=== PATIENT | female | born 1985 | race Two or more races ===

== ENCOUNTER 2020-07-19 15:35 | Emergency (ER) | payer OTHER ==
[~2020-07-19] VITALS: Ht 170.2 cm; Wt 77.2 kg
[2020-07-19 16:23] LABS: BASO # 0.1 x10^3/uL (0.0-0.2); BASO % 1 % (0-3); EOS # 0.1 x10^3/uL (0.0-0.7); EOS % 1 % (0-3); HEMATOCRIT 38.5 % (36.0-47.0); HEMOGLOBIN 12.8 g/dL (12.0-15.5); LYMPH # 2.6 x10^3/uL (1.0-4.8); LYMPH % 39 % (24-48); MEAN CORPUSCULAR HEMOGLOBIN 30 pg (25-35); MEAN CORPUSCULAR HGB CONC 33 g/dL (31-37); MEAN CORPUSCULAR VOLUME 91 fL (79-100); MONO # 0.4 x10^3/uL (0.0-1.1); MONO % 7 % (0-9); NEUT # 3.5 x10^3uL (1.8-7.7); NEUT % 52 % (31-73); PLATELET COUNT 262 x10^3/uL (140-400); RED BLOOD COUNT 4.25 x10^6/uL (3.50-5.40); RED CELL DISTRIBUTION WIDTH 13.4 % (11.5-14.5); WHITE BLOOD COUNT 6.7 x10^3/uL (4.0-11.0)
[2020-07-19 16:24] LABS: PREG TEST PT QUAL NEGATIVE (NEG)
[2020-07-19 16:31] LABS: CALCIUM 8.9 mg/dL (8.5-10.1); CREATININE 0.7 mg/dL (0.6-1.0); GFR 94.7; POTASSIUM 3.8 mmol/L (3.5-5.1)
[2020-07-19 16:33] LABS: BARBITURATES NEG (NEG); BENZODIAZEPINES NEG (NEG); CANNABINOIDS NEG (NEG); COCAINE NEG (NEG); METHADONE NEG (NEG); OPIATES NEG (NEG); PHENCYCLIDINE NEG (NEG)
[2020-07-19 16:34] LABS: AMPHETAMINE/METHAMPHETAMINE NEG (NEG)
[2020-07-19 16:40] LABS: BACTERIA,URINE 0 /HPF (0-FEW); BILIRUBIN,URINE NEG (NEG); CLARITY,URINE CLEAR; COLOR,URINE YELLOW; GLUCOSE,URINE NEG (NEG); NITRITE,URINE NEG (NEG); RBC,URINE 0 /HPF (0-2); UROBILINOGEN,URINE 0.2 mg/dL (0.2 mg/dL); WBC,URINE 0 /HPF (0-4)
[2020-07-19 16:44] LABS: ALBUMIN 3.8 g/dL (3.4-5.0); DIRECT BILIRUBIN 0.1 mg/dL (0.0-0.2); TOTAL BILIRUBIN 0.2 mg/dL (0.2-1.0); TOTAL PROTEIN 7.8 g/dL (6.4-8.2)
--- NOTE | 2020-07-19 16:56 | PHYS DOC ---
Past History Past Medical History: No Pertinent History (MADISON JOHN DO) Past Surgical History: Hysterectomy (MADISON JOHN DO) Alcohol Use: None (MADISON JOHN DO) General Adult EDM: Chief Complaint: ABDOMINAL PAIN HPI: HPI: 35-year-old female past medical history significant for IBS-C, endometriosis, uterine fibroids with "strange cells," s/p hysterectomy in October 2019, presents the ED with complaints of 2 weeks of dull, throbbing abdominal pain that goes from the epigastric region to the umbilicus and radiates across both sides of the abdomen. States today the abdominal pain became worse that it " hurts to move." Reports when she takes Linzess and eats food, she has " ridiculous diarrhea." When she does not take Linzess she does not have diarrhea after eating. States she always has constipation unless she takes Linzess. Last bowel movement yesterday, reports white color. States she is overweight for being in the [employer]. States "I was thinking it was just gas pain." (MADISON JOHN DO) Review of Systems: Review of Systems: Constitutional: Denies fever or chills Eyes: Denies change in visual acuity HENT: Denies nasal congestion or sore throat Respiratory: Denies cough or shortness of breath Cardiovascular: Denies chest pain or edema or syncope GI: Denies nausea, vomiting, melena, hematochezia, hematemesis : Denies dysuria or hematuria Musculoskeletal: Denies back pain or joint pain Integument: Denies rash or diaphoresis Neurologic: Denies headache, focal weakness or sensory changes Endocrine: Denies polyuria or polydipsia Lymphatic: Denies swollen glands Psychiatric: Denies depression or anxiety (MADISON JOHN DO) Physical Exam: PE: Constitutional: Well developed, well nourished, no acute distress, non-toxic appearance. HENT: Normocephalic, atraumatic, Eyes: EOMI, conjunctiva normal, no discharge. Neck: Normal range of motion, supple, Cardiovascular: S1/2 present, regular rhythm Lungs & Thorax: Speaking in full sentences, bilateral equal chest rise, no tachypnea or increased work of breathing Abdomen: soft, epigastric abdominal pain, right upper quadrant pain with no Rose sign, no rigidity or guarding, no pain McBurney's point, no Rovsing sign Skin: Warm, dry, no erythema, no rash. [] Back: No tenderness, no CVA tenderness. [] Extremities: No tenderness, no cyanosis, no lower extremity edema Neurologic: Alert and oriented X 3, normal motor function, normal sensory function, no focal deficits noted. [] Psychologic: Affect normal, judgement normal, mood normal. [] ([facility],MADISON La DO) Current Patient Data: Labs: Laboratory Tests Test 07/19/20 15:50 07/19/20 15:52 Urine Collection Type Unknown Urine Color Yellow Urine Clarity Clear Urine pH 5.5 Urine Specific Mcclure >=1.030 Urine Protein Neg (NEG-TRACE) Urine Glucose (UA) Neg mg/dL (NEG) Urine Ketones (Stick) Neg mg/dL (NEG) Urine Blood Trace (NEG) Urine Nitrite Neg (NEG) Urine Bilirubin Neg (NEG) Urine Urobilinogen Dipstick 0.2 mg/dL (0.2 mg/dL) Urine Leukocyte Esterase Neg (NEG) Urine RBC 0 /HPF (0-2) Urine WBC 0 /HPF (0-4) Urine Squamous Epithelial Cells None /LPF Urine Bacteria 0 /HPF (0-FEW) Urine Opiates Screen Neg (NEG) Urine Methadone Screen Neg (NEG) Urine Barbiturates Neg (NEG) Urine Phencyclidine Screen Neg (NEG) Urine Amphetamine/Methamphetamine Neg (NEG) Urine Benzodiazepines Screen Neg (NEG) Urine Cocaine Screen Neg (NEG) Urine Cannabinoids Screen Neg (NEG) Urine Ethyl Alcohol Neg (NEG) White Blood Count 6.7 x10^3/uL (4.0-11.0) Red Blood Count 4.25 x10^6/uL (3.50-5.40) Hemoglobin 12.8 g/dL (12.0-15.5) Hematocrit 38.5 % (36.0-47.0) Mean Corpuscular Volume 91 fL (79-100) Mean Corpuscular Hemoglobin 30 pg (25-35) Mean Corpuscular Hemoglobin Concent 33 g/dL (31-37) Red Cell Distribution Width 13.4 % (11.5-14.5) Platelet Count 262 x10^3/uL (140-400) Neutrophils (%) (Auto) 52 % (31-73) Lymphocytes (%) (Auto) 39 % (24-48) Monocytes (%) (Auto) 7 % (0-9) Eosinophils (%) (Auto) 1 % (0-3) Basophils (%) (Auto) 1 % (0-3) Neutrophils # (Auto) 3.5 x10^3uL (1.8-7.7) Lymphocytes # (Auto) 2.6 x10^3/uL (1.0-4.8) Monocytes # (Auto) 0.4 x10^3/uL (0.0-1.1) Eosinophils # (Auto) 0.1 x10^3/uL (0.0-0.7) Basophils # (Auto) 0.1 x10^3/uL (0.0-0.2) Sodium Level 140 mmol/L (136-145) Potassium Level 3.8 mmol/L (3.5-5.1) Chloride Level 102 mmol/L (98-107) Carbon Dioxide Level 28 mmol/L (21-32) Anion Gap 10 (6-14) Blood Urea Nitrogen 24 mg/dL (7-20) H Creatinine 0.7 mg/dL (0.6-1.0) Estimated GFR (Cockcroft-Gault) 94.7 Glucose Level 87 mg/dL (70-99) Calcium Level 8.9 mg/dL (8.5-10.1) Total Bilirubin 0.2 mg/dL (0.2-1.0) Direct Bilirubin 0.1 mg/dL (0.0-0.2) Aspartate Amino Transferase (AST) 14 U/L (15-37) L Alanine Aminotransferase (ALT) 20 U/L (14-59) Alkaline Phosphatase 41 U/L (46-116) L Creatine Kinase 78 U/L (26-192) Total Protein 7.8 g/dL (6.4-8.2) Albumin 3.8 g/dL (3.4-5.0) Lipase 143 U/L (73-393) Serum Test, Qualitative Negative (NEG) Vital Signs: Vital Signs Date Time Temp Pulse Resp B/P (MAP) Pulse Ox O2 Delivery O2 Flow Rate FiO2 07/19/20 15:50 98.2 66 16 131/79 (96) 98 Room Air (MADISON JOHN DO) EKG: EKG: [] (MADISON JOHN DO) Radiology/Procedures: Radiology/Procedures: IMAGING REPORT Signed PATIENT: DIANA HOLLINGSWORTH NACCOUNT: [id number] : 1985 LOCATION: ER AGE: 35 SEX: F EXAM STATUS: REG ER ORD. PHYSICIAN: MADISON JOHN DO REASON: ruq pain PROCEDURE: ABDOMEN LTD EXAM: Abdomen sonogram. HISTORY: Right upper quadrant pain. TECHNIQUE: Sonographic imaging of the abdomen was performed. COMPARISON: None. FINDINGS: The liver is normal in size. There is no focal hepatic lesion. There is cholelithiasis. The gallbladder is contracted due to the postprandial status the patient. There is no convincing cholecystitis. The right kidney is normal in size and contains a 1.3 cm simple appearing cyst. The pancreas and inferior vena cava are unremarkable. There is a negative sonographic Rose's sign.. IMPRESSION: 1. Cholelithiasis. 2. 1.3 cm simple appearing right renal cyst. Follow up is not routinely performed for simple cysts. Electronically signed by: Tracy Wagner MD (07/19/2020 5:21 PM) [id number] DICTATED AND SIGNED BY: TRACY WAGNER MD DATE: 07/19/201719 CC: YANET MOODY MD; MADISON JOHN DO ~MTH0 0 IMAGING REPORT Signed PATIENT: DIANA HOLLINGSWORTH NACCOUNT: [id number] : 1985 LOCATION: ER AGE: 35 SEX: F EXAM STATUS: REG ER ORD. PHYSICIAN: MADISON JOHN DO REASON: upper abd pain PROCEDURE: ACUTE ABDOMEN SERIES EXAM: Abdomen acute complete. HISTORY: Pain. COMPARISON: None. FINDINGS: A frontal view of the chest and frontal upright and supine views of abdomen are obtained. There is no infiltrate, pleural effusion or pneumothorax. The heart is normal in size. There is gas and stool within the colon. There is no evidence of bowel obstruction. There is no free air. IMPRESSION: 1. No acute pulmonary finding. 2. Nonobstructive bowel gas pattern. Electronically signed by: Tracy Wagner MD (07/19/2020 5:22 PM) [id number] DICTATED AND SIGNED BY: TRACY WAGNER MD DATE: 07/19/201720 CC: YANET MOODY MD; MADISON JOHN DO ~MTH0 0 (MADISON JOHN DO) Radiology/Procedures: [address] [address] IMAGING REPORT Signed PATIENT: DIANA HOLLINGSWORTH NACCOUNT: [id number] : 1985 LOCATION: ER AGE: 35 SEX: F EXAM STATUS: REG ER ORD. PHYSICIAN: MADISON JOHN DO REASON: ruq pain PROCEDURE: ABDOMEN LTD EXAM: Abdomen sonogram. HISTORY: Right upper quadrant pain. TECHNIQUE: Sonographic imaging of the abdomen was performed. COMPARISON: None. FINDINGS: The liver is normal in size. There is no focal hepatic lesion. There is cholelithiasis. The gallbladder is contracted due to the postprandial status the patient. There is no convincing cholecystitis. The right kidney is normal in size and contains a 1.3 cm simple appearing cyst. The pancreas and inferior vena cava are unremarkable. There is a negative sonographic Rose's sign.. IMPRESSION: 1. Cholelithiasis. 2. 1.3 cm simple appearing right renal cyst. Follow up is not routinely performed for simple cysts. Electronically signed by: Tracy Wagner MD (07/19/2020 5:21 PM) [id number] DICTATED AND SIGNED BY: TRACY WAGNER MD DATE: 07/19/201719 CC: YANET MOODY MD; MADISON JOHN DO ~MTH0 [address] [address] IMAGING REPORT Signed PATIENT: DIANA HOLLINGSWORTH NACCOUNT: [id number] : 1985 LOCATION: ER AGE: 35 SEX: F EXAM STATUS: REG ER ORD. PHYSICIAN: MADISON JOHN DO REASON: upper abd pain, OMNI 300, 75ml PROCEDURE: CT ABD PELV W/ IV CONTRST ONLY PQRS Compliance Statement: One or more of the following individualized dose reduction techniques were utilized for this examination: 1. Automated exposure control 2. Adjustment of the mA and/or kV according to patient size 3. Use of iterative reconstruction technique CT abdomen/pelvis with contrast 07/19/2020 6:23 PM INDICATION: Upper abdominal pain COMPARISON: None available TECHNIQUE: Multiple axial CT images of the abdomen and pelvis were obtained after the intravenous administration of 75 mL Omnipaque 300. Coronal and sagittal reformats are provided. FINDINGS: Lung bases are clear. Heart size is within normal limits. There are hypoa ttenuating lesions within the right hepatic lobe measuring up to 9 mm (series 2, image 14). Findings are too small to characterize, however favor benign etiology. Spleen, adrenal glands, pancreas and gallbladder are normal in appearance. The abdominal aorta is normal in course and caliber. There are no pathologically enlarged lymph nodes in the abdomen and pelvis. There is no abdom inal free fluid. There is no free intraperitoneal air. Small and large bowel are normal in caliber. There is no evidence for bowel obstruction. There are no pericolonic inflammatory changes. A normal, nondilated appendix is visualized without adjacent inflammatory changes. There is a 2 mm nonobstructing calculus in interpolar right kidney. Bilateral renal cortical cysts are identified measuring up to a millimeters in the interpolar right kidney. No suspicious osseous abnormality is identified. IMPRESSION: No acute abnormalities identified in abdomen and pelvis. No bowel obstruction or inflammation. Subcentimeter hypodensities within the right hepatic lobe measure up to 9 mm. Findings favor benign etiology such as hemangioma or simple cyst. Abdominal MRI with and without contrast could be of benefit if clinically warranted. Electronically signed by: Hector Allan MD (07/19/2020 7:12 PM) [facility] DICTATED AND SIGNED BY: HECTOR ALLAN MD DATE: 07/19/201900 CC: LYNETTE RICHARD MD; YANET MOODY MD; MADISON JOHN DO ~MTH0 IMAGING REPORT Signed PATIENT: DIANA HOLLINGSWORTH NACCOUNT: [id number] : 1985 LOCATION: ER AGE: 35 SEX: F EXAM STATUS: REG ER ORD. PHYSICIAN: MADISON JOHN DO REASON: upper abd pain, OMNI 300, 75ml PROCEDURE: CT ABD PELV W/ IV CONTRST ONLY PQRS Compliance Statement: One or more of the following individualized dose reduction techniques were utilized for this examination: 1. Automated exposure control 2. Adjustment of the mA and/or kV according to patient size 3. Use of iterative reconstruction technique CT abdomen/pelvis with contrast 07/19/2020 6:23 PM INDICATION: Upper abdominal pain COMPARISON: None available TECHNIQUE: Multiple axial CT images of the abdomen and pelvis were obtained after the intravenous administration of 75 mL Omnipaque 300. Coronal and sagittal reformats are provided. FINDINGS: Lung bases are clear. Heart size is within normal limits. There are hypoattenuating lesions within the right hepatic lobe measuring up to 9 mm (series 2, image 14). Findings are too small to characterize, however favor benign etiology. Spleen, adrenal glands, pancreas and gallbladder are normal in appearance. The abdominal aorta is normal in course and caliber. There are no pathologically enlarged lymph nodes in the abdomen and pelvis. There is no abdominal free fluid. There is no free intraperitoneal air. Small and large bowel are normal in caliber. There is no evidence for bowel obstruction. There are no pericolonic inflammatory changes. A normal, nondilated appendix is visualized without adjacent inflammatory changes. There is a 2 mm nonobstructing calculus in interpolar right kidney. Bilateral renal cortical cysts are identified measuring up to a millimeters in the interpolar right kidney. No suspicious osseous abnormality is identified. IMPRESSION: No acute abnormalities identified in abdomen and pelvis. No bowel obstruction or inflammation. Subcentimeter hypodensities within the right hepatic lobe measure up to 9 mm. Findings favor benign etiology such as hemangioma or simple cyst. Abdominal MRI with and without contrast could be of benefit if clinically warranted. Electronically signed by: Hector Allan MD (07/19/2020 7:12 PM) [facility] DICTATED AND SIGNED BY: HECTOR ALLAN MD DATE: 07/19/20 190 CC: LYNETTE RICHARD MD; YANET MOODY MD; MADISON JOHN DO ~MTH0 [address] [address] IMAGING REPORT Signed PATIENT: DIANA HOLLINGSWORTH NACCOUNT: [id number] : 1985 LOCATION: ER AGE: 35 SEX: F EXAM STATUS: REG ER ORD. PHYSICIAN: MADISON JOHN DO REASON: upper abd pain PROCEDURE: ACUTE ABDOMEN SERIES EXAM: Abdomen acute complete. HISTORY: Pain. COMPARISON: None. FINDINGS: A frontal view of the chest and frontal upright and supine views of abdomen are obtained. There is no infiltrate, pleural effusion or pneumothorax. The heart is normal in size. There is gas and stool within the colon. There is no evidence of bowel obstruction. There is no free air. IMPRESSION: 1. No acute pulmonary finding. 2. Nonobstructive bowel gas pattern. Electronically signed by: Tracy Wagner MD (07/19/2020 5:22 PM) [id number] DICTATED AND SIGNED BY: TRACY WAGNER MD DATE: 07/19/201720 CC: YANET MOODY MD; MADISON JOHN DO ~MTH0 [address] [address] IMAGING REPORT Signed PATIENT: DIANA HOLLINGSWORTH NACCOUNT: [id number] : 1985 LOCATION: ER AGE: 35 SEX: F EXAM STATUS: REG ER ORD. PHYSICIAN: MADISON JOHN DO REASON: ruq pain PROCEDURE: ABDOMEN LTD EXAM: Abdomen sonogram. HISTORY: Right upper quadrant pain. TECHNIQUE: Sonographic imaging of the abdomen was performed. COMPARISON: None. FINDINGS: The liver is normal in size. There is no focal hepatic lesion. There is cholelithiasis. The gallbladder is contracted due to the postprandial status the patient. There is no convincing cholecystitis. The right kidney is normal in size and contains a 1.3 cm simple appearing cyst. The pancreas and inferior vena cava are unremarkable. There is a negative sonographic Rose's sign.. IMPRESSION: 1. Cholelithiasis. 2. 1.3 cm simple appearing right renal cyst. Follow up is not routinely perf ormed for simple cysts. Electronically signed by: Tracy Wagner MD (07/19/2020 5:21 PM) [id number] DICTATED AND SIGNED BY: TRACY WAGNER MD DATE: 07/19/201719 CC: YANET MOODY MD; MADISON JOHN DO ~MTH0 0 (LYNETTE RICHARD MD) Heart Score: C/O Chest Pain: No Risk Factors: Risk Factors: DM, Current or recent (<one month) smoker, HTN, HLP, family history of CAD, obesity. Risk Scores: Score 0 - 3: 2.5% MACE over next 6 weeks - Discharge Home Score 4 - 6: 20.3% MACE over next 6 weeks - Admit for Clinical Observation Score 7 - 10: 72.7% MACE over next 6 weeks - Early Invasive Strategies (MADISON JOHN DO) Course & Med Decision Making: Course & Med Decision Making Pertinent Labs and Imaging studies reviewed. (See chart for details) Concern for acute on chronic upper abdominal pain in the setting of IBS and h/o endometriosis. US with gallstones. Lots of unremarkable with no elevated liver enzymes, leukocytosis, normal lipase. Analysis with no infection. Abdominal series with no obstruction. Given complicated GI hx, CT a/p pelvis pending to evaluate for diverticulitis appendicitis-other surgical abdomen is not high in suspicion given patient's well appearance. Patient moved here in November and has not establish GI care. Due to shift change patient was signed out to oncoming physician Dr. Richard for further evaluation and disposition. (MADISON JOHN DO) Course & Med Decision Making Clear fluid diet only. No solids or milk products for the next 2 days. Must have bowel rest. No surgical pathology appreciated on CT findings. Ultrasound did show findings consistent with gallbladder stones. But no inflammation labs and electrolytes were in normal range. Recommend follow-up ultrasound for you gallbladder function such as PIPIDA scan or equivalent. Tylenol and ibuprofen for pain. Avoid high-fat meals. Follow-up primary care. Follow-up with surgery. Return if any concerns. Take Pepcid 20 mg twice a day. May take Zofran 8 mg at 4 times a day for nausea vomiting. Must have reexam if no improvement. Impression: 1. Abdomen pain 2. Biliary colic. (GLORIALYNETTE SLOAN Disclaimer: Hedy Disclaimer: This electronic medical record was generated, in whole or in part, using a voice recognition dictation system. (MADISON JOHN DO) Departure Departure: Impression: Primary Impression: Upper abdominal pain Additional Impressions: Gall stones IBS (irritable bowel syndrome) Referrals: YANET MOODY MD (PCP) Scripts Ondansetron Hcl (ZOFRAN) 4 Mg Tablet 8 MG PO QIDPRN PRN for NAUSEA/VOMITING, #30 TAB Prov: LYNTETE RICHARD MD 07/19/20 Famotidine (PEPCID) 20 Mg Tablet 20 MG PO BID for reflux, #60 TAB Prov: LYNETTE RICHARD MD 07/19/20 MADISON JOHN DO Jul 19, 2020 16:55 LYNETTE RICHARD MD Jul 19, 2020 18:57
--- NOTE | 2020-07-19 17:23 | RAD ---
EXAM: Abdomen sonogram. HISTORY: Right upper quadrant pain. TECHNIQUE: Sonographic imaging of the abdomen was performed. COMPARISON: None. FINDINGS: The liver is normal in size. There is no focal hepatic lesion. There is cholelithiasis. The gallbladder is contracted due to the postprandial status the patient. There is no convincing cholecy stitis. The right kidney is normal in size and contains a 1.3 cm simple appearing cyst. The pancreas and inferior vena cava are unremarkable. There is a negative sonographic Rose's sign.. IMPRESSION: 1. Cholelithiasis. 2. 1.3 cm simple appearing right renal cyst. Follow up is not routinely performed for simple cysts. Electronically signed by: Tracy Barclay MD (07/19/2020 5:21 PM) [id number]
--- NOTE | 2020-07-19 17:24 | RAD ---
EXAM: Abdomen acute complete. HISTORY: Pain. COMPARISON: None. FINDINGS: A frontal view of the chest and frontal upright and supine views of abdomen are obtained. T here is no infiltrate, pleural effusion or pneumothorax. The heart is normal in size. There is gas an d stool within the colon. There is no evidence of bowel obstruction. There is no free air. IMPRESSION: 1. No acute pulmonary finding. 2. Nonobstructive bowel gas pattern. Electronically signed by: Tracy Barclay MD (07/19/2020 5:22 PM) [id number]
[2020-07-19] MEDS ORDERED: KETOROLAC 15 MG/ML VIAL. IVP ONE (18:00)
[2020-07-19] MEDS ORDERED: IOHEXOL 300 MG/ML 75 ML VIAL. IV ONE (18:15)
[2020-07-19] MEDS ORDERED: CONTRAST GIVEN. MC PRN (18:15)
[2020-07-19] MEDS ORDERED: diphenhydrAMINE 50 MG/ML VIAL ONE (18:21)
[2020-07-19] MEDS ORDERED: diphenhydrAMINE 50 MG/ML VIAL IVP ONE (18:30)
--- NOTE | 2020-07-19 19:14 | RAD ---
PQRS Compliance Statement: One or more of the following individualized dose reduction techniques were utilized for this examinat ion: 1. Automated exposure control 2. Adjustment of the mA and/or kV according to patient size 3. Use of iterative reconstruction technique CT abdomen/pelvis with contrast 07/19/2020 6:23 PM INDICATION: Upper abdominal pain COMPARISON: None available TECHNIQUE: Multiple axial CT images of the abdomen and pelvis were obtained after the intravenous adm inistration of 75 mL Omnipaque 300. Coronal and sagittal reformats are provided. FINDINGS: Lung bases are clear. Heart size is within normal limits. There are hypoattenuating lesions within th e right hepatic lobe measuring up to 9 mm (series 2, image 14). Findings are too small to characteriz e, however favor benign etiology. Spleen, adrenal glands, pancreas and gallbladder are normal in appe arance. The abdominal aorta is normal in course and caliber. There are no pathologically enlarged lym ph nodes in the abdomen and pelvis. There is no abdominal free fluid. There is no free intraperitonea l air. Small and large bowel are normal in caliber. There is no evidence for bowel obstruction. There are no pericolonic inflammatory changes. A normal, nondilated appendix is visualized without adjacen t inflammatory changes. There is a 2 mm nonobstructing calculus in interpolar right kidney. Bilateral renal cortical cysts are identified measuring up to a millimeters in the interpolar right kidney. No suspicious osseous abnormality is identified. IMPRESSION: No acute abnormalities identified in abdomen and pelvis. No bowel obstruction or inflammation. Subcentimeter hypodensities within the right hepatic lobe measure up to 9 mm. Findings favor benign e tiology such as hemangioma or simple cyst. Abdominal MRI with and without contrast could be of benefi t if clinically warranted. Electronically signed by: Ariadne Enriquez MD (07/19/2020 7:12 PM) [facility]
[2020-07-19] MEDS ORDERED: ONDA4TAB7 PO (19:55)
[2020-07-19] MEDS ORDERED: FAMO-63 PO (19:55)
[2020-07-19 20:01] VITALS: BP 122/66
== END 2020-07-19 20:05 | disposition home or self-care (01) ==
LOC: ER 15:35
DX: K80.20 Calculus of gallbladder without cholecystitis without obstruction (principal); R10.11 Right upper quadrant pain; R10.13 Epigastric pain; K58.9 Irritable bowel syndrome, unspecified; Z90.710 Acquired absence of both cervix and uterus
CPT/HCPCS: 36415; 74022; 74177; 76705; 80048; 80076; 80307; 81001; 82550; 83690; 84703; 85025; 96374; 96375; 99285; J1200; J1885; Q9967